=== PATIENT | male | born 1995 | race African-American/Black ===

== ENCOUNTER 2017-08-24 12:46 | Emergency (ER) | payer BC ==
[2017-08-24 14:46] VITALS: BP 144/69
--- NOTE | 2017-08-24 15:21 | UC ---
UC General HPI - History of Current Complaint Chief Complaint: UCGeneralIllness Stated Complaint: swollen tongue Time Seen by Provider: 08/24/17 14:47 Hx Obtained From: Patient Onset/Duration: Gradual Onset - started 5 days ago with swollen, painful tongue. thought he had a "canker sore" but tongue still swollen and now white coated. no ST. smoked "a lot" of cigarettes day before tongue swelling. feels a bit better today-less swollen and sore Onset Severity: Severe Current Severity: Moderate - Allergy/Home Medications Allergies/Adverse Reactions: Allergies Allergy/AdvReac Type Severity Reaction Status Date / Time No Known Allergies Allergy Verified 08/24/17 12:52 PMH/Surg Hx/FS Hx/Imm Hx Previously Healthy: Yes - Surgical History Surgical History: None - Family History Known Family History: Positive: None - Social History Occupation: Employed Part-time Lives: With Family Alcohol Use: Occasionally Substance Use Type: None, Marijuana Smoking Status (MU): Current Some Day Smoker Have You Smoked in the Last Year: Yes Cessation Counseling: Patient Advised to Stop Review of Systems Constitutional: Negative Skin: Negative Respiratory: Negative Cardiovascular: Negative Genitourinary: Negative - denies dysuria, hematuria, or penile drainage, no lesions Psychological: Negative Is Patient Immunocompromised?: No All Other Systems Reviewed And Are Negative: Yes Physical Exam Triage Information Reviewed: Yes Appearance: Well-Appearing, No Pain Distress, Well-Nourished Vital Signs: Initial Vital Signs Temp 98.4 F 08/24/17 12:53 Pulse 84 08/24/17 12:53 Resp 17 08/24/17 12:53 BP 127/68 08/24/17 12:53 Pulse Ox 100 08/24/17 12:53 Vital Signs Reviewed: Yes ENT: Positive: Pharynx normal, Other - thick white coating tongue, tip of tongue a bit swollen, no lesions noted mouth moist Neck: Positive: No Lymphadenopathy Respiratory Exam: Normal Cardiovascular Exam: Normal Neurological Exam: Normal Psychological Exam: Normal Skin Exam: Normal Skin: Negative: rashes Course/Dx - Differential Dx - Multi-Symptom Differential Diagnoses: Other - Thrush, allergic reaction, bacterial/viral infection Provider Diagnoses: thrush Discharge - Discharge Plan Condition: Stable Disposition: HOME Prescriptions: Fluconazole 100 MG TAB* [Diflucan 100 MG TAB*] 100 mg PO DAILY #12 tab Patient Education Materials: Oral Candidiasis (ED) Referrals: No Primary Care Phys,NOPCP [Primary Care Provider] - Additional Instructions: Follow-up with your primary care provider this Saturday as scheduled use medication as directed report to ER if problems worsen at anytime
== END 2017-08-24 15:35 | disposition home or self-care (01) ==
LOC: UCEAST 12:46
DX: B37.0 Candidal stomatitis (principal); F17.200 Nicotine dependence, unspecified, uncomplicated
CPT/HCPCS: 99212; G0463

== ENCOUNTER 2019-02-17 09:35 | Emergency (ER) | payer BC, OTHER ==
[2019-02-17 10:05] VITALS: BP 124/56
--- NOTE | 2019-02-17 10:08 | UC ---
Throat Pain/Nasal Nasim HPI - HPI Summary HPI Summary: 23 yo male presents with sore throat. He tells me that about 10 days ago he developed a sore throat. About a week ago he went to a local urgent care and tells me that a strep test and mono test were performed and were both negative. He was told his symptoms were likely viral and would improve. The next 2-3 days he felt body aches, fatigue, and continued to have a sore throat. Over the last 3-4 days his symptoms have significantly improved and he is feeling much better. Last night, however, he felt hot/cold and noticed his throat was hurting a bit more when it seemed like it was improving. He took tylenol and felt better. This morning he feels better, still with a very slight sore throat. He is eating, drinking, and tolerating po well. Denies headache, sinus symptoms, cough, rash, abdominal pain, n/v. - History of Current Complaint Chief Complaint: UCGeneralIllness Stated Complaint: SORE THROAT Time Seen by Provider: 02/17/19 10:07 Hx Obtained From: Patient Onset/Duration: Sudden Onset Severity: Mild Pain Intensity: 0 Pain Scale Used: 0-10 Numeric - Allergies/Home Medications Allergies/Adverse Reactions: Allergies Allergy/AdvReac Type Severity Reaction Status Date / Time No Known Allergies Allergy Verified 02/17/19 10:05 Home Medications: Home Medications NK [No Home Medications Reported] 02/17/19 [History Confirmed 02/17/19] PMH/Surg Hx/FS Hx/Imm Hx - Additional Past Medical History Additional PMH: None - Surgical History Surgical History: None - Family History Known Family History: Positive: None - Social History Occupation: Student Lives: With Family Alcohol Use: Weekly Substance Use Type: None Smoking Status (MU): Never Smoked Tobacco Have You Smoked in the Last Year: Yes Review of Systems All Other Systems Reviewed And Are Negative: Yes Constitutional: Positive: Negative Skin: Positive: Negative Eyes: Positive: Negative ENT: Positive: Sore Throat Respiratory: Positive: Negative Cardiovascular: Positive: Negative Gastrointestinal: Positive: Negative Neurovascular: Positive: Negative Neurological: Positive: Negative Psychological: Positive: Negative Physical Exam - Summary Physical Exam Summary: GENERAL: NAD. WDWN. No pain distress. SKIN: No rashes, sores, lesions, or open wounds. HEENT: Head: AT/NC Eyes: EOM intact. Conjunctiva clear without inflammation or discharge. Ears: Hearing grossly normal. TMs intact, no bulging, erythema, or edema. Nose: Nasal mucosa pink and moist. NTTP maxillary and frontal sinus. Throat: Posterior oropharynx without exudates, erythema. 2+ tonsillar enlargement. Uvula midline. NECK: Supple. Nontender. No lymphadenopathy. CHEST: CTAB. No r/r/w. No accessory muscle use. Breathing comfortably and in no distress. CV: RRR. Without m/r/g. Pulses intact. Cap refill <2seconds NEURO: Alert. PSYCH: Age appropriate behavior. Triage Information Reviewed: Yes Vital Signs: Initial Vital Signs Temp 98.4 F 02/17/19 10:02 Pulse 72 02/17/19 10:02 Resp 16 02/17/19 10:02 BP 124/56 02/17/19 10:02 Pulse Ox 99 02/17/19 10:02 Laboratory Tests 02/17/19 10:16 Group A Strep Rapid Negative Vital Signs Reviewed: Yes Throat Pain/Nasal Course/Dx - Course Course Of Treatment: POC strep negative. Will send for full throat culture given continued symptoms, although improving. Will also draw for CBC today to further evaluate. I suspect his symptoms are viral and they seem to be improving daily. Advised to continue taking tylenol/ibuprofen for discomfort and will f/u with results. Advised to recheck if symptoms worsen. - Differential Dx/Diagnosis Provider Diagnosis: Sore throat Discharge - Sign-Out/Discharge Documenting (check all that apply): Patient Departure All imaging exams completed and their final reports reviewed: No Studies - Discharge Plan Condition: Stable Disposition: HOME Patient Education Materials: Pharyngitis (ED) Referrals: No Primary Care Phys,NOPCP [Primary Care Provider] - Additional Instructions: If you develop a fever, shortness of breath, chest pain, new or worsening symptoms - please call your PCP or go to the ED immediately. 1) Your strep test here was negative, but we have sent a full throat culture to the lab to test for other bacteria. This result will take 2-3 days. 2) I suspect that your symptoms are viral. They seem to be improving as per usual course of a viral illness - please keep taking tylenol/ibuprofen as directed for discomfort. 3) We have also drawn a CBC (white count) to check for an underlying infection. This result will likely be back tomorrow - Billing Disposition and Condition Condition: STABLE Disposition: Home - Attestation Statements Provider Attestation: I was available for consult. This patient was seen by the JUAN PABLO. The patient was not presented to, seen by, or examined by me. -Juan Manuel
[2019-02-17 15:01] LABS: ABS Eosinophils 0.1 10^3/ul (0-0.6); ABS Lymphocytes 1.9 10^3/ul (1.0-4.8); ABS Monocytes 1.4 10^3/ul (0-0.8); ABS Neutrophils 6.7 10^3/ul (1.5-7.7); Hematocrit 46 % (42-52); Hemoglobin 15.8 g/dL (14.0-18.0); Lymphocyte % 18.5 %; Mean Corpuscular HGB Conc 34 g/dL (31-36); Mean Corpuscular Hemoglobin 31 pg (27-31); Mean Corpuscular Volume 90 fL (80-94); Mean Platelet Volume 8.4 fL (7.4-10.4); Platelet Count 247 10^3/uL (150-450); Red Cell Distribution Width 13 % (10-15); White Blood Count 10.2 10^3/uL (3.5-10.8)
--- NOTE | 2019-02-19 19:26 | UC ---
- Progress Note Progress Note: THROAT CULTURE WITH NORMAL RAMON. CBC UNREMARKABLE. NO INDICATION FOR ANTIBIOTICS. NO CHANGE IN MANAGEMENT. Course/Dx - Diagnoses Provider Diagnoses: Sore throat Discharge - Sign-Out/Discharge Documenting (check all that apply): Post-Discharge Follow Up All imaging exams completed and their final reports reviewed: No Studies - Discharge Plan Condition: Stable Disposition: HOME Patient Education Materials: Pharyngitis (ED) Referrals: No Primary Care Phys,NOPCP [Primary Care Provider] - Additional Instructions: If you develop a fever, shortness of breath, chest pain, new or worsening symptoms - please call your PCP or go to the ED immediately. 1) Your strep test here was negative, but we have sent a full throat culture to the lab to test for other bacteria. This result will take 2-3 days. 2) I suspect that your symptoms are viral. They seem to be improving as per usual course of a viral illness - please keep taking tylenol/ibuprofen as directed for discomfort. 3) We have also drawn a CBC (white count) to check for an underlying infection. This result will likely be back tomorrow - Billing Disposition and Condition Condition: STABLE Disposition: Home
== END 2019-02-17 10:30 | disposition home or self-care (01) ==
LOC: UCEAST 09:35
DX: J02.9 Acute pharyngitis, unspecified (principal)
CPT/HCPCS: 36415; 85025; 87070; 87077; 87651; 99211; G0463